=== PATIENT | male | born 1995 | race Caucasian/White ===

== ENCOUNTER 2021-07-09 08:30 | Inpatient (IN) | payer SELFPAY ==
[2021-07-09] MEDS ORDERED: Acetaminophen 500 MG TAB ONE ×2 (09:11→09:19)
[2021-07-09] MEDS ORDERED: Ibuprofen 800 MG TAB ONE (09:11)
[2021-07-09] MEDS ORDERED: Iopamidol-370 76% 500 ML 1 ML ONE (09:50)
[2021-07-09 10:25] LABS: #Lymphocytes 0.7 thou/uL (1.20-3.40); #Monocytes 1.6 thou/uL (0.11-0.59); #Neutrophils 9.8 thou/uL (1.40-6.50); %Basophils 0.4 % (0.0-1.0); %Eosinophils 0.1 % (0.0-10.0); %Lymphocytes 6.1 % (21.0-51.0); %Monocytes 13.3 % (0.0-10.0); %Neutrophils 80.1 % (42.0-75.0); Hemoglobin 14.7 g/dL (14.0-18.0); Mean Corpuscular HGB CONC 35.5 g/dL (32.0-36.0); Mean Corpuscular Hemoglobin 32.7 pg (27.0-31.0); Mean Corpuscular Volume 92.1 fL (78.0-98.0); Mean Platelet Volume 7.6 fL (7.4-10.4); Platelet Count 189 thou/uL (130-400); RBC Distribution Width 12.2 % (11.5-14.5); Red Blood Cell (RBC) Count 4.49 mill/uL (4.70-6.10); White Blood Cell (WBC) Count 12.2 thou/uL (4.8-10.8)
[2021-07-09] MEDS ORDERED: Clindamycin/D5W 900 mg/50 ml Premix Bag ONE ×2 (10:44→17:52)
[2021-07-09] MEDS ORDERED: Dexamethasone 4 mg/ml Vial ONE (10:44)
[2021-07-09 10:51] LABS: ALT (SGPT) 19 U/L (8-55); AST (SGOT) 22 U/L (5-34); Alkaline Phosphatase 61 U/L (40-110); Anion Gap 14 mmol/L (10-20); BUN (Urea Nitrogen) 13 mg/dL (8.9-20.6); Bilirubin, Total 0.2 mg/dL (0.2-1.2); Calc. Creatinine Clearance 0 mL/min (70-130); Calcium 9.2 mg/dL (7.8-10.44); Carbon Dioxide 20 mmol/L (22-29); Chloride 104 mmol/L (98-107); Globulin 3.5 g/dL (2.4-3.5); Glucose 119 mg/dL (70-105); Potassium 3.8 mmol/L (3.5-5.1); Protein, Total 7.5 g/dL (6.0-8.3); Sodium 134 mmol/L (136-145)
[2021-07-09 13:09] LABS: SARS-CoV-2 NAA Rapid Test DETECTED (NotDetected)
[2021-07-09] MEDS ORDERED: Fentanyl 100 MCG/2 ML VIAL ONE (16:07)
[2021-07-09] MEDS ORDERED: Acetaminophen 325 MG TAB PO PRN (16:21)
[2021-07-09] MEDS ORDERED: Acetaminophen 650 MG Suppository PR PRN (16:21)
[2021-07-09] MEDS ORDERED: Midazolam HCl 5 mg/5 ml Vial ONE (16:41)
[2021-07-09] MEDS ORDERED: Dexmedetomidine 200 MCG/2 ML VIAL ONE (16:42)
[2021-07-09] MEDS ORDERED: Lidocaine 1% w/Epinephrine 1:100K 20 ML VIAL ONE (16:43)
[2021-07-09] MEDS ORDERED: Chlorhexidine Gluconate 15 ML UDCUP SSP ONE (16:43)
[2021-07-09] MEDS ORDERED: Hydrocortisone 1% Cream 30 GM TUBE ONE (16:43)
[2021-07-09] MEDS ORDERED: Bacitracin Zinc Ointment 30 gm TUBE ONE (16:45)
[2021-07-09] MEDS ORDERED: Ketamine 50 MG/ML (10ML VIAL) ONE (16:47)
[2021-07-09] MEDS ORDERED: PROPOFOL 200 MG/20 ML VIAL ONE (17:17)
[2021-07-09] MEDS ORDERED: Ondansetron PF 4 MG/2 ML Vial ONE (17:17)
[2021-07-09] MEDS ORDERED: Dexamethasone 20 MG/5 ML VIAL ONE (17:17)
[2021-07-09] MEDS ORDERED: Glycopyrrolate 0.2 MG/ML 5 ML SYRINGE ONE (17:17)
[2021-07-09] MEDS ORDERED: Succinylcholine 200 MG/10 ml SYRINGE FS ONE (17:17)
[2021-07-09] MEDS ORDERED: Rocuronium Bromide 10 MG/ML (10ML VIAL) ONE (17:17)
[2021-07-09] MEDS ORDERED: Propofol 1,000 MG/100 ML VIAL IV ONE (19:07)
[2021-07-09] MEDS ORDERED: Morphine 2 MG/ML VIAL SLOW IVP PRN ×2 (19:27→20:45)
[2021-07-09] MEDS ORDERED: HYDROcodone/Acetaminophen 5/325 mg Tablet PO PRN (19:28)
[2021-07-09] MEDS ORDERED: Ondansetron PF 4 MG/2 ML Vial IVP PRN (19:29)
[2021-07-09] MEDS ORDERED: Fentanyl CADD 100 ML ONE (19:46)
[2021-07-09 19:52] LABS: Base Excess (BEa) -4.5 mEq/L (-2.0 to +3.0); CO2 Tension 40.1 mmHg (35.0-45.0); Calcium, Ionized (arterial) 1.13 mmol/L (1.12-1.30); Carboxyhemoglobin (COHb) 0.2 gm% (0.0-3.0); Hemoglobin (Hb) 14.4 g/dL (14.0-18.0); O2 Tension (PaO2), arterial 105.4 mmHg (80.0-100.0); Potassium - ABG Lab 3.77 mmol/L (3.70-5.30); pH, Arterial 7.34 (7.35-7.45)
[2021-07-09] MEDS: D5 0.9% NS w/ 20 mEq KCl 1,000 ML IV SCH (20:26)
[2021-07-09 20:39] LABS: ALV-art Gradient 129.675 mmHg (0-20); Puncture Site RBA
[2021-07-09] MEDS ORDERED: Fentanyl CADD 100 ML IV SCH (20:45)
[2021-07-09] MEDS ORDERED: Fentanyl BOLUS 250 ML IVPB PRN (20:45)
[2021-07-09] MEDS ORDERED: DISCONTINUE PREVIOUS NARCOTIC PAIN MEDICATIONS AND BENZODIAZEPINES FS SCH (20:45)
[2021-07-09] MEDS ORDERED: Lorazepam 2 MG/ML VIAL SLOW IVP PRN (20:45)
[2021-07-09] MEDS ORDERED: Propofol BOLUS 1,000 MG/100 ML VIAL IV PRN (20:45)
[2021-07-09] MEDS: Ampicillin/Sulbactam 3 GM in Sodium Chloride 0.9% 100 ML IVPB SCH (20:52)
[2021-07-09] MEDS: Clindamycin/D5W 900 MG in Premix Bag 1 BAG IVPB SCH (21:50)
[2021-07-09] MEDS: Chlorhexidine Gluconate 15 ML UDCUP SSP SCH (21:51)
[2021-07-09] MEDS: Propofol 1,000 MG/100 ML VIAL IV PRN (21:59)
[2021-07-09] MEDS ORDERED: Norepinephrine 8 MG/0.9% NS 250 ML IVPB SCH (22:15)
[2021-07-09] MEDS: Ibuprofen 800 MG TAB PO SCH (23:31)
[2021-07-10] MEDS: Ampicillin/Sulbactam 3 GM in Sodium Chloride 0.9% 100 ML IVPB SCH ×3 (00:48→11:32)
[2021-07-10] MEDS: Propofol 1,000 MG/100 ML VIAL IV PRN ×2 (02:40→06:28)
[2021-07-10 04:01] LABS: #Lymphocytes 0.8 thou/uL (1.20-3.40); #Monocytes 0.9 thou/uL (0.11-0.59); #Neutrophils 11.5 thou/uL (1.40-6.50); %Basophils 0.1 % (0.0-1.0); %Eosinophils 0.2 % (0.0-10.0); %Lymphocytes 6.1 % (21.0-51.0); %Monocytes 6.8 % (0.0-10.0); %Neutrophils 86.9 % (42.0-75.0); Hemoglobin 13.8 g/dL (14.0-18.0); Mean Corpuscular HGB CONC 34.5 g/dL (32.0-36.0); Mean Corpuscular Hemoglobin 32.1 pg (27.0-31.0); Mean Platelet Volume 8.2 fL (7.4-10.4); Platelet Count 191 thou/uL (130-400); RBC Distribution Width 12.1 % (11.5-14.5); Red Blood Cell (RBC) Count 4.29 mill/uL (4.70-6.10); White Blood Cell (WBC) Count 13.2 thou/uL (4.8-10.8)
[2021-07-10 04:15] LABS: Anion Gap 13 mmol/L (10-20); BUN (Urea Nitrogen) 10 mg/dL (8.9-20.6); Calc. Creatinine Clearance 185 mL/min (70-130); Calcium 8.6 mg/dL (7.8-10.44); Carbon Dioxide 22 mmol/L (22-29); Chloride 108 mmol/L (98-107); Glucose 196 mg/dL (70-105); Potassium 4.5 mmol/L (3.5-5.1); Sodium 138 mmol/L (136-145)
[2021-07-10] MEDS: Ibuprofen 800 MG TAB PO SCH ×2 (05:52→11:32)
[2021-07-10] MEDS: Clindamycin/D5W 900 MG in Premix Bag 1 BAG IVPB SCH (06:28)
[2021-07-10 07:55] LABS: Actual Bicarbonate (HCO3a) 23.6 mEq/L (22-28); Base Excess (BEa) 0.3 mEq/L (-2.0 to +3.0); CO2 Tension 34.4 mmHg (35.0-45.0); Calcium, Ionized (arterial) 1.13 mmol/L (1.12-1.30); Carboxyhemoglobin (COHb) 0.1 gm% (0.0-3.0); O2 Tension (PaO2), arterial 109.4 mmHg (80.0-100.0); Potassium - ABG Lab 3.97 mmol/L (3.70-5.30); pH, Arterial 7.46 (7.35-7.45)
[2021-07-10 07:58] LABS: Puncture Site RRA
[2021-07-10] MEDS ORDERED: Morphine 2 MG/ML VIAL SLOW IVP PRN (08:48)
[2021-07-10] MEDS ORDERED: HYDROcodone/Acetaminophen 5/325 mg Tablet PO PRN (08:48)
[2021-07-10] MEDS: Chlorhexidine Gluconate 15 ML UDCUP SSP SCH (09:00)
[2021-07-10 12:08] VITALS: TEMP 99.1
[2021-07-10 12:32] VITALS: BMI 33.0
[2021-07-10] MEDS: D5 0.9% NS w/ 20 mEq KCl 1,000 ML IV SCH (12:45)
== END 2021-07-10 13:40 | disposition home or self-care (01) | DRG 853 ==
LOC: ERS 08:30 → SURG A 14:29 → CCU 19:13
PROVIDERS: ADMIT Internal Medicine; ATTEND Internal Medicine
PROC: 0J910ZZ Drainage of Face Subcutaneous Tissue and Fascia, Open Approach (ICD-10-PCS; principal; 2021-07-09)
PROC: 0C9M0ZZ Drainage of Pharynx, Open Approach (ICD-10-PCS; 2021-07-09)
PROC: 0CDXXZ1 Extraction of Lower Tooth, Multiple, External Approach (ICD-10-PCS; 2021-07-09)
DX: A41.9 Sepsis, unspecified organism (principal); U07.1 COVID-19; K12.2 Cellulitis and abscess of mouth; J39.1 Other abscess of pharynx; K04.7 Periapical abscess without sinus; K04.1 Necrosis of pulp
CPT/HCPCS: 36415; 36600; 70491; 80048; 80053; 82805; 83605; 85025; 87040; 87070; 87077; 87205; 94002; 94003; 94760; 96365; 96375; J0295; J1100; J1956; J2250; J2405; J2704; J3010; J3480; J3490; Q9967; U0002; U0005